=== PATIENT | male | born 1970 | race Caucasian/White ===

== ENCOUNTER 2022-07-12 10:43 | Emergency (ER) | payer MEDICAID ==
[~2022-07-12] VITALS: Ht 193 cm; Wt 136.1 kg
[2022-07-12 10:58] VITALS: BP_SYST 145
[2022-07-12 11:46] VITALS: BP_SYST 145
== END 2022-07-12 11:47 | disposition home or self-care (01) ==
LOC: SED 10:43
DX: S61.215A Laceration without foreign body of left ring finger without damage to nail, initial encounter (principal); Z79.899 Other long term (current) drug therapy; W29.8XXA Contact with other powered hand tools and household machinery, initial encounter; Y93.89 Activity, other specified; Y92.89 Other specified places as the place of occurrence of the external cause; Y99.8 Other external cause status
CPT/HCPCS: 99282

== ENCOUNTER 2023-10-19 09:53 | Emergency (ER) | payer MEDICAID ==
[~2023-10-19] VITALS: Ht 193 cm; Wt 133.8 kg
[2023-10-19 09:55] VITALS: BP_SYST 132; PULSE 78; RESP 18; TEMP 97.4; O2SAT 97
[2023-10-19] MEDS ORDERED: BUPIVACAINE /PF 0.25% 30 ML VIAL INJ ONE (10:34)
[2023-10-19] MEDS ORDERED: ceFAZolin SODIUM 1 GM VIAL ONE (11:02)
[2023-10-19] MEDS: BUPIVACAINE /PF 0.25% 10 ML VIAL INJ ONE (11:25)
[2023-10-19] MEDS: ceFAZolin SODIUM 2 GM VIAL IM ONE (11:25)
[2023-10-19] MEDS: BACITRACIN 1 GM OINT TP ONE (13:06)
[2023-10-19] MEDS ORDERED: CEPH-548 PO (14:15)
[2023-10-19 14:31] VITALS: BP_SYST 132; PULSE 78; RESP 18; TEMP 97.4; O2SAT 97
[2023-10-19] MEDS ORDERED: levalbuterol HCL 0.63 MG/3 ML VIAL.NEB INH ONE (15:13)
== END 2023-10-19 14:30 | disposition home or self-care (01) ==
LOC: SED 09:53
DX: S62.616B Displaced fracture of proximal phalanx of right little finger, initial encounter for open fracture (principal); Z79.2 Long term (current) use of antibiotics; X58.XXXA Exposure to other specified factors, initial encounter; Y93.89 Activity, other specified; Y92.89 Other specified places as the place of occurrence of the external cause; Y99.9 Unspecified external cause status
CPT/HCPCS: 99284; 26770; 73130; 73140; 96372; 12002; J3490; J0690; J7614